=== PATIENT | female | born 1995 | race Two or more races ===

== ENCOUNTER 2024-09-01 19:01 | Emergency (ER) | payer MEDICAID, SELFPAY ==
[2024-09-01 19:18] VITALS: BP 121/75; PULSE 85; TEMP 36.9; O2SAT 98; BMI 29.3
--- NOTE | 2024-09-01 19:30 | ECG_ITS ---
[facility] Test Date: 2024-09-01 Pat Name: TODD AKINS Department: Room: - Gender: Female Science Specialist: : [id number] Requested By: [id number] Order Number: [id number] Reading MD: DAYNA GREGORIO Measurements Intervals [place] Rate: 77 P: 56 MN: 134 QRS: 59 QRSD: 80 T: 27 QT: 362 QTc: 394 Interpretive Statements 1100 Sinus rhythm 9110 normal ECG No previous ECG available for comparison Electronically Signed On 09-02-2024 6:50:56 EST by DAYNA GREGORIO
--- NOTE | 2024-09-01 19:35 | ED.GENADUL1 ---
HPI HPI - General Adult General Chief complaint: Headache Stated complaint: TINGLES,UPPER EXTREMITY PAIN Time Seen by Provider: 09/01/24 19:08 Source: patient Mode of arrival: walk-in Limitations: language barrier History of Present Illness HPI narrative: 29-year-old female to the emergency department with chief complaint of intermittent headache, paresthesia that been ongoing for the last month. Patient reports it has been occurring intermittently, but near daily. She reports that she gets the onset of a headache that is occipital in location. It usually comes on slowly. She reports that after this she begins to experience paresthesia around her mouth, face, and hands. She reports it typically lasts 30 minutes to an hour and then resolves. She reports it occurs most commonly when she is in her car on break at work. There are no vision changes, weakness, difficulty speaking or walking. She reports she is otherwise at her baseline health throughout the day. No new life stressors. No new exposures. She does not take any medications. She is currently being observed for elevated blood pressure by her primary care physician at the [facility]. Today she got one of the headaches before work and did not go to work because of it. This prompted an ED visit after discussion with her mother. Past medical history: Denies Past surgical history: Medications: None Related Data Previous Rx's ?Medication ?Instructions ?Recorded cephalexin 500 mg capsule 500 mg PO BID 5 days #10 caps 09/01/24 cyclobenzaprine 10 mg tablet 10 mg PO BID PRN muscle spasm #10 09/01/24 tabs naproxen 500 mg tablet 500 mg PO BID PRN pain #14 tabs 09/01/24 Allergies Allergy/AdvReac Type Severity Reaction Status Date / Time Sulfa (Sulfonamide Allergy Mild Rash Verified 09/01/24 19:18 Antibiotics) Opioid HPI Opioid Management Most Recent Opioid Data: Last Pain Scale 5 09/01/24 20:04 09/01/24 Review of Systems ROS Status of ROS 10 or more systems reviewed and unremarkable except as noted in history and below PFSH PFSH Social History Little interest or pleasure in doing things: not at all Feeling down, depressed, or hopeless: not at all Exam Narrative Exam Narrative: VITALS: I have reviewed the triage vital signs. GENERAL: Well developed, well appearing adult in no acute distress. Mother at the bedside NEURO: Alert and oriented x4. Moves all extremities. Face is symmetric and expressive. Cranial nerves II through XII grossly intact as tested. Muscular strength and sensation grossly intact upper and lower extremities bilaterally. No dysarthria. No aphasia. No ataxia. Normal gait. NIHSS 0. EYES: PERRL. No scleral icterus or conjunctival injection. No discharge. HENT: Normocephalic, atraumatic. Hearing is grossly intact. Nares grossly patent and without discharge. Mucous membranes moist. NECK: No JVD. Patient moves neck without restriction. CARDIO: Rhythm regular. Normal rate. No murmur, rub, or gallop. Pulses equal bilaterally in the upper and lower extremity. No lower extremity edema. PULM: Lungs clear to auscultation in all [place]. No wheezes, rales, or rhonchi. No conversational dyspnea. No splinting, stridor, or accessory muscle use. GI/: Abdomen is soft and non-tender. Normoactive bowel sounds. EXTREMITIES: Symmetric muscle bulk. No joint swelling. No clubbing, cyanosis, or deformity. SKIN: Warm and dry. Normal turgor. No rash or lesions appreciated. PSYCH: Mood, affect, and interaction is appropriate to the setting. Constitutional Vital Signs, click to edit/add: Last Vital Signs Temp 98.4 F 09/01/24 19:18 Pulse 86 09/01/24 20:17 Resp 18 09/01/24 20:17 BP 121/71 09/01/24 20:17 Pulse Ox 99 09/01/24 20:17 O2 Del Method Room Air 09/01/24 19:18 Course Vital Signs Vital signs: Vital Signs Temperature 98.4 F 09/01/24 19:18 Pulse Rate 85 09/01/24 19:18 Respiratory Rate 19 09/01/24 19:18 Blood Pressure 121/75 09/01/24 19:18 Pulse Oximetry 98 09/01/24 19:18 Oxygen Delivery Method Room Air 09/01/24 19:18 Temperature 98.4 F 09/01/24 19:18 Pulse Rate 86 09/01/24 20:17 Respiratory Rate 18 09/01/24 20:17 Blood Pressure 121/71 09/01/24 20:17 Pulse Oximetry 99 09/01/24 20:17 Oxygen Delivery Method Room Air 09/01/24 19:18 Medical Decision Making MDM Narrative Medical decision making narrative: 29-year-old female to the emergency department with chief complaint of intermittent episodes of headache associated with paresthesia, muscle cramping. Vital stable, the patient is afebrile. Her neurologic examination is nonfocal. After a careful history it sounds as though she is having primary headaches associated with work and then developing anxiety, paresthesias following. We will workup today with a CT scan of her head given the new headaches as well as some basic labs. Patient agrees with this plan. Will attempt treatment today with Toradol and Ativan. CBC and chemistry without major abnormality. Urinalysis is concerning for UTI. CT head without acute findings. Findings were discussed with the patient. Will treat her UTI with Keflex. Suspect that she has tension headaches versus migraine headaches. It sounds as though these are setting off anxiety episodes leading to her paresthesias. Will treat the headaches with naproxen and Flexeril. She is given a referral to Dr. Grubbs, neurology for further evaluation headache. I discussed the workup, my recommendations with the patient and her mother. They agree with this plan. Prescriptions were sent to their pharmacy of choice. Return precautions were discussed. All questions were answered. The patient was discharged home. Professional translation service used on iPad throughout the entire encounter Medical Records Medical records reviewed: Yes I reviewed the patient's medical records Lab Data Lab results reviewed: Yes I reviewed the patient's lab results Labs: Lab Results 09/01/24 09/01/24 Range/Units 19:38 19:44 WBC 11.5 H (4.0-11.0) 10^3/uL RBC 4.23 (4.20-5.40) 10^6/uL Hgb 12.8 (12.0-16.0) g/dL Hct 38.4 (36.0-48.0) % MCV 90.8 (81.0-99.0) fL MCH 30.3 (26.7-34.0) pg MCHC 33.3 (29.9-35.2) g/dL RDW 12.5 (11.0-15.0) % Plt Count 257 (150-450) 10^3/uL MPV 10.8 (9.5-13.5) fL Neut % (Auto) 65.0 (43.0-75.0) % Lymph % (Auto) 26.5 (20.5-60.0) % Ada % (Auto) 5.6 (1.7-12.0) % Eos % (Auto) 2.4 (0.9-7.0) % Baso % (Auto) 0.3 (0.2-2.0) % Neut # (Auto) 7.4 H (1.4-6.5) 10^3/uL Lymph # (Auto) 3.0 (1.2-3.8) 10^3/uL Ada # (Auto) 0.6 (0.3-0.8) 10^3/uL Eos # (Auto) 0.3 (0.0-0.7) 10^3/uL Baso # (Auto) 0.0 (0.0-0.1) 10^3/uL Abs Immat Gran (auto) 0.02 (0.00-0.03) 10^3/uL Imm/Tot Granulo (auto) 0.2 (0.0-0.5) % Sodium 140 (136-145) mmol/L Potassium 3.8 (3.5-5.1) mmol/L Chloride 104 (98-107) mmol/L Carbon Dioxide 25.9 (21.0-32.0) mmol/L Anion Gap 13.9 BUN 12.0 (7.0-18.0) mg/dL Creatinine 0.69 (0.55-1.02) mg/dL Est GFR ( Amer) >60 (>=60 mL/min/1.73m^2) Est GFR (Non-Af Amer) >60 (>=60 mL/min/1.73m^2) BUN/Creatinine Ratio 17.4 Glucose 103 (74-106) mg/dL Calcium 8.5 (8.5-10.1) mg/dL Serum HCG, Qual Negative (NEGATIVE) Urine Color Lt. yellow (YELLOW) Urine Clarity Clear (CLEAR) Urine pH 7.5 (5.0-9.0) Ur Specific [place] 1.020 (1.005-1.025) Urine Protein Negative (NEG/TRACE) mg/dL Urine Glucose (UA) Negative (NEGATIVE) mg/dL Urine Ketones Negative (NEGATIVE) mg/dL Urine Occult Blood Trace-i (NEGATIVE) Urine Nitrite Negative (NEGATIVE) Urine Bilirubin Negative (NEGATIVE) Urine Urobilinogen 2.0 A (0.2-1.0) EU/dL Ur Leukocyte Esterase Negative (NEGATIVE) Urine RBC 2-5 A (0-2) #/HPF Urine WBC 0-2 A (NONE SEEN) #/HPF Ur Squamous Epith Cells Few A (NONE/RARE) #/LPF Urine Crystals None seen (None Seen) #/HPF Urine Bacteria Moderate A (NONE SEEN) #/HPF Urine Casts None seen (NONE SEEN) #/LPF Urine Mucus None seen (NONE SEEN) Ur Culture Indicated? Yes-[facility] [place] Discharge Plan Discharge Chief Complaint: Headache Clinical Impression: Headache, UTI (urinary tract infection) Patient Disposition: Home, Self-Care Time of Disposition Decision: 20:58 Condition: Good Mode of Transportation: Private Vehicle Prescriptions / Home Meds: New cyclobenzaprine 10 mg tablet 10 mg PO BID PRN (Reason: muscle spasm) Qty: 10 0RF cephalexin 500 mg capsule 500 mg PO BID 5 Days Qty: 10 0RF naproxen 500 mg tablet 500 mg PO BID PRN (Reason: pain) Qty: 14 0RF Print Language: Uzbek Instructions: Urinary Tract Infection in Women (ED), Acute Headache (ED) Additional Instructions: Call the office of your primary care doctor to arrange for follow-up within the above-stated timeframe. Your ED visit was focused on your acute issue and does not replace primary care. You should review your labs, imaging, and diagnoses from this ED visit with your primary care physician. There may be non-emergent/ incidental findings that need further evaluation. You should review your vital signs including blood pressure with your PCP. If you were prescribed medications you should discuss possible side-effects and drug interactions with your pharmacist. Call 911 or go to the nearest Emergency Department if you develop any new or worsening symptoms. Seek immediate medical attention if you develop: worsening headache, nausea, vomiting, confusion, weakness, loss of motion in your arms or legs, loss of control of your urine Referrals: Matteo Grubbs DO [Physician] - 1 week (Follow-up to discuss headaches) Physician,Non-Staff, MD [Primary Care Provider] - 1 week (follow-up with the health department)
[2024-09-01 19:45] LABS: Basophils Percent Auto 0.3 % (0.2-2.0); Eosinophils Absolute Auto 0.3 10^3/uL (0.0-0.7); Eosinophils Percent Auto 2.4 % (0.9-7.0); Hematocrit 38.4 % (36.0-48.0); Hemoglobin 12.8 g/dL (12.0-16.0); Immature Granulocytes Abs Auto 0.02 10^3/uL (0.00-0.03); Immature Granulocytes Pct Auto 0.2 % (0.0-0.5); Lymphocytes Percent Auto 26.5 % (20.5-60.0); Mean Corpuscular HGB Conc 33.3 g/dL (29.9-35.2); Mean Corpuscular Hemoglobin 30.3 pg (26.7-34.0); Mean Corpuscular Volume 90.8 fL (81.0-99.0); Mean Platelet Volume 10.8 fL (9.5-13.5); Monocytes Absolute Auto 0.6 10^3/uL (0.3-0.8); Monocytes Percent Auto 5.6 % (1.7-12.0); Neutrophils Absolute Auto 7.4 10^3/uL (1.4-6.5); Platelet Count 257 10^3/uL (150-450); Red Blood Count 4.23 10^6/uL (4.20-5.40); Red Cell Distribution Width 12.5 % (11.0-15.0); White Blood Count 11.5 10^3/uL (4.0-11.0)
--- NOTE | 2024-09-01 19:49 | PC.NURSE ---
labor service representative obtained blood draw and took it down to lab this patient provide a urine sample and i walked this urine sample down to lab dept. 12 lead EKG complete
[2024-09-01 19:52] LABS: Bilirubin Urine NEGATIVE (NEGATIVE); Blood Urine TRACE-I (NEGATIVE); Clarity Urine CLEAR (CLEAR); Color Urine LT. YELLOW (YELLOW); Glucose Urine UA NEGATIVE (NEGATIVE); Ketones Urine NEGATIVE (NEGATIVE); Leukocyte Esterase Urine NEGATIVE (NEGATIVE); Nitrite Urine NEGATIVE (NEGATIVE); Protein Urine NEGATIVE (NEG/TRACE); pH Urine 7.5 (5.0-9.0)
[2024-09-01 19:54] LABS: Anion Gap 13.9; BUN Creatinine Ratio 17.4; Calcium 8.5 mg/dL (8.5-10.1); Carbon Dioxide 25.9 mmol/L (21.0-32.0); Chloride 104 mmol/L (98-107); Estimated GFR (African America >60 (>=60 mL/min/1.73m^2); Estimated GFR (Non-African Ame >60 (>=60 mL/min/1.73m^2); Glucose 103 mg/dL (74-106); Potassium 3.8 mmol/L (3.5-5.1); Sodium 140 mmol/L (136-145)
[2024-09-01 19:58] LABS: HCG Qualitative NEGATIVE (NEGATIVE); Internal Control Within Normal Limits
[2024-09-01] MEDS: KETOROLAC TROMETHAMINE 30 MG/ML VIAL IM (20:04)
[2024-09-01] MEDS: LORAZEPAM 2 MG/ML VIAL 1 MG IM (20:05)
[2024-09-01 20:16] LABS: Bacteria Urine MODERATE #/HPF (NONE SEEN); Cast Seen? NONE SEEN #/LPF (NONE SEEN); Crystals Seen? None Seen #/HPF (None Seen); Mucus Urine NONE SEEN (NONE SEEN); Squamous Epithelial Cell Urine FEW #/LPF (NONE/RARE)
[2024-09-01 20:17] VITALS: BP 121/71; PULSE 86; O2SAT 99
[2024-09-01 20:17] LABS: WBC Urine 0-2 #/HPF (NONE SEEN)
--- NOTE | 2024-09-01 20:17 | PC.NURSE ---
this patient just back from ct dept, and this patient is aware that we are waiting on all of the test results to come back. this not her mother voicesno concerns and this patient shows no signs of distress
[2024-09-01 20:18] LABS: Urine Culture Indicated YES-FRMC
--- NOTE | 2024-09-01 20:36 | PC.NURSE ---
thus patient is lying supine on the bed, awake and alert talking to her mother(at bedside). this patient voices no concerns and shows no signs of distress,and who is aware still waiting on all of the test results to come back
== END 2024-09-01 21:20 | disposition home or self-care (01) ==
PROVIDERS: Emergency Provider Student in an Organized Health Care Education/Training Program
DX: R51.9 Headache, unspecified (principal); N39.0 Urinary tract infection, site not specified
CPT/HCPCS: 36415; 70450; 80048; 81001; 84703; 85025; 87086; 93005; 96372; 99285; J1885; J2060